=== PATIENT | female | born 1985 | race Caucasian/White ===

== ENCOUNTER 2020-04-14 17:37 | Emergency (ER) | payer BC, MEDICAID ==
[~2020-04-14] VITALS: Ht 165.1 cm; Wt 54.4 kg
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
[2020-04-14] MEDS ORDERED: HYDROCODONE/APAP 5/325MG TABLET ONE (18:40)
--- NOTE | 2020-04-14 18:43 | NUR ---
NORCO 5/325MG 1 TAB PO ADMINISTERED FOR 10/10 RLE PAIN.
[2020-04-14] MEDS ORDERED: ACETAMINOPHEN 325 MG TABLET PO ONE (19:00)
[2020-04-14] MEDS ORDERED: HYDROCODONE/APAP 5/325MG TABLET PO ONE (19:00)
--- NOTE | 2020-04-14 19:26 | NUR ---
ANKLE STIRRUP AND CRUTCHES PROVIDED TO PATIENT. PT ABLE TO AMBULATE WITH STEADY GAIT. Patient discharged to home in stable condition. Written and verbal after care instructions given. Patient verbalizes understanding of instruction. Pt instructed not to drive, pt verbalized understanding
[2020-04-14 19:27] VITALS: BP 118/68
== END 2020-04-14 19:28 | disposition home or self-care (01) ==
LOC: ER 17:50
DX: S90.01XA Contusion of right ankle, initial encounter (principal); S00.81XA Abrasion of other part of head, initial encounter; S80.211A Abrasion, right knee, initial encounter; V49.59XA Passenger injured in collision with other motor vehicles in traffic accident, initial encounter; Y93.89 Activity, other specified; Y92.488 Other paved roadways as the place of occurrence of the external cause; Y99.8 Other external cause status
CPT/HCPCS: 73564-TC; 73610-TC